=== PATIENT | female | born 1945 | race Caucasian/White ===

== ENCOUNTER 2018-04-01 09:20 | Inpatient (IN) | payer OTHER ==
[~2018-04-01 09:20] MED LIST: HIP PAIN COCKTAIL (CEFUROXIME) INJ; PROPOFOL 200 MG INJ
[2018-04-01] MEDS: TRANEXAMIC ACID 1,000 MG in NS 100 ML PRE-OP X1 IVPB (12:00)
[2018-04-01] MEDS: LACTATED RINGER'S 1,000 ML IV* (12:00)
[2018-04-01] MEDS: TRANEXAMIC ACID 1,000 MG in NS 100 ML INTRA-OP X1 IVPB (12:00)
[2018-04-01] MEDS: DEXAMETHASONE 4 MG/ML 1 ML INJ IV (12:35)
[2018-04-01] MEDS: oxyCODONE (CR) 10 MG TAB [oxyCONTIN] PO (12:36)
[2018-04-01] MEDS: ACETAMINOPHEN 1000MG/100ML IV 100 ML IVPB (12:36)
[2018-04-01] MEDS: ONDANSETRON 4 MG INJ IV ×4 (12:36→18:37)
[2018-04-01] MEDS: LANSOPRAZOLE 30 MG CAP PO (12:36)
[2018-04-01] MEDS ORDERED: POLYMYXIN/BACITRACIN 1L IRRIG (13:20)
[2018-04-01] MEDS ORDERED: ZOLPIDEM 5 MG TAB PO (13:30)
[2018-04-01] MEDS ORDERED: oxyCODONE 5 MG TAB PO (13:30)
[2018-04-01] MEDS ORDERED: MAGNESIUM HYDROXIDE 30ML CUP PO (13:30)
[2018-04-01] MEDS ORDERED: BISACODYL 10 MG SUPP PR (13:30)
[2018-04-01] MEDS ORDERED: SENNA/DOCUSATE NA (8.6MG/50MG) TAB PO (13:30)
[2018-04-01] MEDS ORDERED: KETOROLAC 15 MG INJ IV (13:30)
[2018-04-01] MEDS ORDERED: NA PHOSPHATE/BIPHOS 133 ML ENEMA PR (13:30)
[2018-04-01] MEDS ORDERED: NALOXONE (0.4 MG/ML) INJ IV (13:30)
[2018-04-01] MEDS ORDERED: DIPHENHYDRAMINE 50 MG INJ IV ×2 (13:30→14:30)
[2018-04-01] MEDS ORDERED: BUPIVACAINE 0.75%/DEXT (SPINAL) 2 ML INJ (13:44)
[2018-04-01] MEDS ORDERED: morphine SULFATE/PF (10 MG/10 ML) INJ (13:44)
[2018-04-01] MEDS ORDERED: METOCLOPRAMIDE 10 MG INJ IV (14:30)
[2018-04-01] MEDS ORDERED: HYDROmorphONE 1 MG/5 ML IV SYRINGE IV ×3 (14:30)
[2018-04-01] MEDS ORDERED: FENTAnyl 50 MCG/ML VIAL IV ×2 (14:30)
[2018-04-01] MEDS ORDERED: MEPERIDINE 25 MG INJ IV (14:30)
[2018-04-01] MEDS: BACITRACIN 50000 UNITS INJ (14:31)
[2018-04-01] MEDS: POLYMYXIN B 500000 UNIT INJ (14:31)
[2018-04-01] MEDS: POLYMYXIN/BACITRACIN 1L IRRIG IRR (14:31)
[2018-04-01] MEDS ORDERED: POLYMYXIN B 500000 UNIT INJ (15:02)
[2018-04-01] MEDS ORDERED: SUCCINYLCHOLINE CHLORIDE 100 MG/5 ML SYG IV (15:02)
[2018-04-01] MEDS ORDERED: CEFAZOLIN 1 GM INJ (15:02)
[2018-04-01] MEDS ORDERED: ROCURONIUM 50 MG INJ (15:02)
[2018-04-01] MEDS ORDERED: LIDOCAINE 100 MG SYRINGE (15:02)
[2018-04-01] MEDS ORDERED: PHENYLephrine 10 MG INJ (15:02)
[2018-04-01] MEDS ORDERED: SUGAMMADEX SODIUM 200 MG/2 ML VIAL IV (15:02)
[2018-04-01] MEDS ORDERED: hydrALAzine 20 MG INJ IV (16:30)
[2018-04-01] MEDS: SOD CHLORIDE 0.9% 1,000 ML IV ×2 (17:17→18:36)
[2018-04-01] MEDS: CEFAZOLIN 1 GM/50 ML (PMX) 50 ML IVPB ×2 (17:22→21:25)
[2018-04-01] MEDS: DOCUSATE SODIUM 100 MG CAP PO (17:23)
[2018-04-01] MEDS: ASPIRIN (EC) 325 MG TAB PO ×2 (17:25→21:00)
[2018-04-01] MEDS: ATORVASTATIN 10 MG TAB PO (21:23)
[2018-04-01] MEDS: GABAPENTIN 100 MG CAP PO (21:23)
[2018-04-02] MEDS: ONDANSETRON 4 MG INJ IV ×2 (01:30→05:50)
[2018-04-02] MEDS: PANTOPRAZOLE (EC) 40 MG TAB PO (05:50)
[2018-04-02] MEDS: CEFAZOLIN 1 GM/50 ML (PMX) 50 ML IVPB (05:50)
[2018-04-02 05:52] LABS: ADD MAN DIFF? NO
[2018-04-02 06:11] LABS: BASOPHILS % 0.1 % (0.0-2.0); HEMATOCRIT 38.6 % (37.0-47.0); LYMPHOCYTES # 0.6 10^3/ul (0.8-2.9); LYMPHOCYTES % 7.9 % (15.0-51.0); MEAN CORPUSCULAR HGB CONC 33.7 g/dl (32.0-37.0); MEAN CORPUSCULAR VOLUME 95.1 fl (82.0-101.0); MEAN PLATELET VOLUME 10.8 fl (7.4-10.4); MONOCYTE # 0.2 10^3/ul (0.3-0.9); MONOCYTES % 3.1 % (0.0-11.0); NEUTROPHIL # 6.9 10^3/ul (1.6-7.5); NEUTROPHILS % 88.5 % (39.0-77.0); PLATELET COUNT 129 10^3/UL (140-415); RED BLOOD COUNT 4.06 10^6/ul (4.20-5.40); RED CELL DISTRIBUTION WIDTH 13.1 % (11.5-14.5)
[2018-04-02 06:11] LABS: WHITE BLOOD COUNT 7.7 10^3/ul (4.8-10.8)
[2018-04-02] MEDS: BETHANECHOL 25 MG TAB PO (06:20)
[2018-04-02 06:21] LABS: ANION GAP 14 (8-16); BLOOD UREA NITROGEN 27 mg/dl (7-20); CALCIUM 8.6 mg/dl (8.4-10.2); CARBON DIOXIDE 27 mmol/L (21-31); CHLORIDE 107 mmol/L (97-110); CREATININE 0.71 mg/dl (0.44-1.00); GLUCOSE 150 mg/dl (70-220); POTASSIUM 4.8 mmol/L (3.5-5.1); SODIUM 143 mmol/L (135-144)
[2018-04-02] MEDS: FERROUS FUMARATE (SR) TAB PO ×2 (08:35→21:17)
[2018-04-02] MEDS: DOCUSATE SODIUM 100 MG CAP PO ×2 (08:35→21:17)
[2018-04-02] MEDS: CELECOXIB 200 MG CAP PO ×2 (08:36→21:18)
[2018-04-02] MEDS: GABAPENTIN 100 MG CAP PO ×2 (08:37→21:18)
[2018-04-02] MEDS: ASPIRIN (EC) 325 MG TAB PO ×2 (08:38→21:17)
[2018-04-02] MEDS: METOPROLOL (XL) 50 MG TAB PO (08:38)
[2018-04-02] MEDS: HYDROCHLOROTHIAZIDE 25 MG TAB PO (08:38)
[2018-04-02] MEDS: AMLODIPINE 2.5 MG TAB PO (08:39)
[2018-04-02] MEDS: oxyCODONE 5 MG TAB PO ×5 (10:25→22:01)
[2018-04-02] MEDS: SOD CHLORIDE 0.9% 1,000 ML IV (14:17)
[2018-04-02] MEDS: ATORVASTATIN 10 MG TAB PO (21:17)
[2018-04-03] MEDS: SOD CHLORIDE 0.9% 1,000 ML IV (02:47)
[2018-04-03] MEDS: oxyCODONE 5 MG TAB PO ×2 (03:27→10:01)
[2018-04-03 05:22] LABS: ADD MAN DIFF? NO
[2018-04-03 05:34] LABS: BASOPHILS % 0.1 % (0.0-2.0); EOSINOPHILS % 0.5 % (0.0-7.0); HEMATOCRIT 34.6 % (37.0-47.0); HEMOGLOBIN 11.6 g/dl (12.0-16.0); LYMPHOCYTES # 1.4 10^3/ul (0.8-2.9); LYMPHOCYTES % 17.3 % (15.0-51.0); MEAN CORPUSCULAR HEMOGLOBIN 31.7 pg (29.0-33.0); MEAN CORPUSCULAR HGB CONC 33.5 g/dl (32.0-37.0); MEAN CORPUSCULAR VOLUME 94.5 fl (82.0-101.0); MEAN PLATELET VOLUME 11.1 fl (7.4-10.4); MONOCYTE # 0.8 10^3/ul (0.3-0.9); MONOCYTES % 9.3 % (0.0-11.0); NEUTROPHIL # 5.9 10^3/ul (1.6-7.5); NEUTROPHILS % 72.6 % (39.0-77.0); PLATELET COUNT 131 10^3/UL (140-415); RED BLOOD COUNT 3.66 10^6/ul (4.20-5.40); RED CELL DISTRIBUTION WIDTH 13.2 % (11.5-14.5)
[2018-04-03 05:34] LABS: WHITE BLOOD COUNT 8.1 10^3/ul (4.8-10.8)
[2018-04-03 05:47] LABS: ANION GAP 14 (8-16); BLOOD UREA NITROGEN 33 mg/dl (7-20); CALCIUM 8.4 mg/dl (8.4-10.2); CARBON DIOXIDE 29 mmol/L (21-31); CHLORIDE 100 mmol/L (97-110); CREATININE 0.85 mg/dl (0.44-1.00); GLUCOSE 116 mg/dl (70-220); POTASSIUM 4.1 mmol/L (3.5-5.1); SODIUM 139 mmol/L (135-144)
[2018-04-03] MEDS: PANTOPRAZOLE (EC) 40 MG TAB PO ×2 (06:00→06:08)
[2018-04-03] MEDS: DOCUSATE SODIUM 100 MG CAP PO (09:55)
[2018-04-03] MEDS: CELECOXIB 200 MG CAP PO (09:55)
[2018-04-03] MEDS: FERROUS FUMARATE (SR) TAB PO (09:56)
[2018-04-03] MEDS: ASPIRIN (EC) 325 MG TAB PO (09:56)
[2018-04-03] MEDS: METOPROLOL (XL) 50 MG TAB PO (09:56)
[2018-04-03] MEDS: HYDROCHLOROTHIAZIDE 25 MG TAB PO (09:56)
[2018-04-03] MEDS: GABAPENTIN 100 MG CAP PO (09:56)
[2018-04-03] MEDS: AMLODIPINE 2.5 MG TAB PO (09:56)
== END 2018-04-03 15:30 | disposition home health service (06) | DRG 470 ==
LOC: REC 09:20 → MS1 18:20
PROC: 0SRC069 Replacement of Right Knee Joint with Oxidized Zirconium on Polyethylene Synthetic Substitute, Cemented, Open Approach (ICD-10-PCS; principal; 2018-04-01 13:30)
DX: M17.11 Unilateral primary osteoarthritis, right knee (principal); D69.6 Thrombocytopenia, unspecified; E66.9 Obesity, unspecified; Z68.35 Body mass index [BMI] 35.0-35.9, adult; E78.5 Hyperlipidemia, unspecified; I10 Essential (primary) hypertension
CPT/HCPCS: 73560; 80048; 85025; 87081; 87086; 88304; 88311; 97110; 97116; 97162; 97165; 97530

== ENCOUNTER 2018-10-14 07:52 | Inpatient (IN) | payer OTHER ==
[~2018-10-14 07:52] MED LIST changes: -HIP PAIN COCKTAIL (CEFUROXIME) INJ; +METOCLOPRAMIDE 10 MG INJ; +ONDANSETRON 4 MG INJ; -PROPOFOL 200 MG INJ
[2018-10-14] MEDS: oxyCODONE (CR) 10 MG TAB [oxyCONTIN] PO (08:35)
[2018-10-14] MEDS: LACTATED RINGER'S 1,000 ML IV* (08:35)
[2018-10-14] MEDS: LANSOPRAZOLE 30 MG CAP PO (08:35)
[2018-10-14] MEDS: ONDANSETRON 4 MG INJ IV ×2 (08:35→13:52)
[2018-10-14] MEDS: DEXAMETHASONE 4 MG/ML 1 ML INJ IV (08:36)
[2018-10-14] MEDS: ACETAMINOPHEN 1000MG/100ML IV 100 ML IVPB (08:44)
[2018-10-14] MEDS: CEFAZOLIN 1 GM/50 ML (PMX) 50 ML IVPB (09:00)
[2018-10-14] MEDS ORDERED: ACETAMINOPHEN 500 MG TAB PO (09:00)
[2018-10-14] MEDS ORDERED: FENTAnyl 50 MCG/ML VIAL (09:10)
[2018-10-14] MEDS ORDERED: MIDAZOLAM 1 MG/ML 2 ML INJ (09:11)
[2018-10-14] MEDS ORDERED: morphine SULFATE/PF (10 MG/10 ML) INJ (09:11)
[2018-10-14] MEDS ORDERED: CEFAZOLIN 1 GM INJ (09:13)
[2018-10-14] MEDS ORDERED: PROPOFOL 20 ML (09:13)
[2018-10-14] MEDS ORDERED: LIDOCAINE 2% (SDV) 5 ML INJ (09:13)
[2018-10-14] MEDS ORDERED: ROPIVACAINE 0.5 % 30 ML VIAL (09:16)
[2018-10-14] MEDS ORDERED: NALOXONE (0.4 MG/ML) INJ IV (10:00)
[2018-10-14] MEDS ORDERED: MAGNESIUM HYDROXIDE 30ML CUP PO (10:00)
[2018-10-14] MEDS ORDERED: HYDROmorphONE 1 MG/5 ML IV SYRINGE IV ×3 (10:00)
[2018-10-14] MEDS ORDERED: LABETALOL HCL 20MG INJ IV (10:00)
[2018-10-14] MEDS ORDERED: LEVALBUTEROL (NEB) 1.25 MG/0.5 ML AMP HHN (10:00)
[2018-10-14] MEDS ORDERED: BISACODYL 10 MG SUPP PR (10:00)
[2018-10-14] MEDS ORDERED: IPRATROPIUM (NEB) 0.5 MG/2.5 ML AMP HHN (10:00)
[2018-10-14] MEDS ORDERED: FENTAnyl 50 MCG/ML VIAL IV ×2 (10:00)
[2018-10-14] MEDS ORDERED: BETHANECHOL 25 MG TAB PO (10:00)
[2018-10-14] MEDS ORDERED: MEPERIDINE 25 MG INJ IV (10:00)
[2018-10-14] MEDS ORDERED: oxyCODONE 5 MG TAB PO ×2 (10:00)
[2018-10-14] MEDS ORDERED: NA PHOSPHATE/BIPHOS 133 ML ENEMA PR (10:00)
[2018-10-14] MEDS ORDERED: CEFAZOLIN 2 GM/50 ML (PMX) 50 ML IVPB (10:00)
[2018-10-14] MEDS ORDERED: hydrALAzine 20 MG INJ IV (10:00)
[2018-10-14] MEDS ORDERED: NACL 0.9% 3 ML SYG IV (10:00)
[2018-10-14] MEDS ORDERED: SENNA/DOCUSATE NA (8.6MG/50MG) TAB PO (10:00)
[2018-10-14] MEDS ORDERED: DIPHENHYDRAMINE 50 MG INJ IV ×2 (10:00)
[2018-10-14] MEDS ORDERED: BUPIVACAINE 0.75%/DEXT (SPINAL) 2 ML INJ (10:15)
[2018-10-14] MEDS: TRANEXAMIC ACID 1,000 MG in NS 100 ML PRE-OP X1 IVPB (10:40)
[2018-10-14] MEDS: TRANEXAMIC ACID 1,000 MG in NS 100 ML INTRA-OP X1 IVPB (10:40)
[2018-10-14] MEDS: BACITRACIN 50000 UNITS INJ (11:05)
[2018-10-14] MEDS: POLYMYXIN B 500000 UNIT INJ (11:06)
[2018-10-14] MEDS: HIP PAIN COCKTAIL (CEFUROXIME) INJ (11:07)
[2018-10-14] MEDS: GABAPENTIN 100 MG CAP PO ×2 (13:00→21:35)
[2018-10-14] MEDS: ASPIRIN 81 MG TAB PO (13:04)
[2018-10-14] MEDS: DOCUSATE SODIUM 100 MG CAP PO (13:05)
[2018-10-14] MEDS ORDERED: METOCLOPRAMIDE 10 MG INJ (13:45)
[2018-10-14] MEDS: SOD CHLORIDE 0.9% 1,000 ML IV ×2 (14:52→21:28)
[2018-10-14] MEDS: CEFAZOLIN 2 GM/50 ML (PMX) 50 ML IVPB (17:38)
[2018-10-14] MEDS: ATORVASTATIN 10 MG TAB PO (21:29)
[2018-10-15] MEDS: CEFAZOLIN 2 GM/50 ML (PMX) 50 ML IVPB ×2 (02:13→10:28)
[2018-10-15 06:08] LABS: ADD MAN DIFF? NO
[2018-10-15 06:14] LABS: WHITE BLOOD COUNT 9.3 10^3/ul (4.8-10.8)
[2018-10-15 06:14] LABS: HEMOGLOBIN 11.8 g/dl (12.0-16.0); LYMPHOCYTES # 0.8 10^3/ul (0.8-2.9); LYMPHOCYTES % 8.3 % (15.0-51.0); MEAN CORPUSCULAR HEMOGLOBIN 31.3 pg (29.0-33.0); MEAN CORPUSCULAR HGB CONC 33.7 g/dl (32.0-37.0); MEAN CORPUSCULAR VOLUME 92.8 fl (82.0-101.0); MONOCYTE # 0.5 10^3/ul (0.3-0.9); MONOCYTES % 5.6 % (0.0-11.0); NEUTROPHILS % 85.8 % (39.0-77.0); PLATELET COUNT 134 10^3/UL (140-415); RED BLOOD COUNT 3.77 10^6/ul (4.20-5.40); RED CELL DISTRIBUTION WIDTH 13.7 % (11.5-14.5)
[2018-10-15 06:34] LABS: ANION GAP 14 (5-13); BLOOD UREA NITROGEN 30 mg/dl (7-20); CALCIUM 8.9 mg/dl (8.4-10.2); CARBON DIOXIDE 25 mmol/L (21-31); CHLORIDE 101 mmol/L (97-110); CREATININE 0.86 mg/dl (0.44-1.00); GLUCOSE 130 mg/dl (70-220); POTASSIUM 4.6 mmol/L (3.5-5.1); SODIUM 140 mmol/L (135-144)
[2018-10-15] MEDS: DOCUSATE SODIUM 100 MG CAP PO ×2 (08:40→21:15)
[2018-10-15] MEDS: METOPROLOL (XL) 100 MG TAB PO (08:40)
[2018-10-15] MEDS: HYDROCHLOROTHIAZIDE 25 MG TAB PO (08:41)
[2018-10-15] MEDS: AMLODIPINE 2.5 MG TAB PO (08:41)
[2018-10-15] MEDS: GABAPENTIN 100 MG CAP PO ×3 (08:41→21:15)
[2018-10-15] MEDS: ASPIRIN (EC) 81 MG TAB PO (08:41)
[2018-10-15] MEDS ORDERED: ASPIRIN (EC) 81 MG TAB PO (09:00)
[2018-10-15] MEDS ORDERED: ONDANSETRON 4 MG INJ IV (10:00)
[2018-10-15] MEDS: CELECOXIB 100 MG CAP PO ×2 (10:27→21:21)
[2018-10-15] MEDS: APIXABAN 5 MG TABLET PO ×2 (10:27→21:15)
[2018-10-15] MEDS: SOD CHLORIDE 0.9% 1,000 ML IV ×2 (10:28→23:27)
[2018-10-15] MEDS: ATORVASTATIN 10 MG TAB PO (21:14)
[2018-10-16] MEDS: PANTOPRAZOLE (EC) 40 MG TAB PO (05:44)
[2018-10-16] MEDS: oxyCODONE 5 MG TAB PO (05:47)
[2018-10-16 06:47] LABS: ADD MAN DIFF? NO
[2018-10-16 06:57] LABS: BASOPHILS % 0.1 % (0.0-2.0); EOSINOPHILS # 0.1 10^3/ul (0.0-0.5); EOSINOPHILS % 0.7 % (0.0-7.0); HEMATOCRIT 33.7 % (37.0-47.0); HEMOGLOBIN 11.2 g/dl (12.0-16.0); LYMPHOCYTES # 1.9 10^3/ul (0.8-2.9); LYMPHOCYTES % 26.2 % (15.0-51.0); MEAN CORPUSCULAR HGB CONC 33.2 g/dl (32.0-37.0); MEAN CORPUSCULAR VOLUME 93.4 fl (82.0-101.0); MEAN PLATELET VOLUME 10.9 fl (7.4-10.4); MONOCYTE # 0.7 10^3/ul (0.3-0.9); MONOCYTES % 9.4 % (0.0-11.0); NEUTROPHIL # 4.5 10^3/ul (1.6-7.5); NEUTROPHILS % 63.3 % (39.0-77.0); PLATELET COUNT 124 10^3/UL (140-415); RED BLOOD COUNT 3.61 10^6/ul (4.20-5.40); RED CELL DISTRIBUTION WIDTH 13.5 % (11.5-14.5)
[2018-10-16 06:57] LABS: WHITE BLOOD COUNT 7.1 10^3/ul (4.8-10.8)
[2018-10-16 07:23] LABS: ANION GAP 8 (5-13); BLOOD UREA NITROGEN 28 mg/dl (7-20); CARBON DIOXIDE 28 mmol/L (21-31); CHLORIDE 102 mmol/L (97-110); CREATININE 0.72 mg/dl (0.44-1.00); GLUCOSE 101 mg/dl (70-220); POTASSIUM 4.2 mmol/L (3.5-5.1); SODIUM 138 mmol/L (135-144)
[2018-10-16] MEDS: DOCUSATE SODIUM 100 MG CAP PO (08:14)
[2018-10-16] MEDS: GABAPENTIN 100 MG CAP PO ×2 (08:14→13:47)
[2018-10-16] MEDS: CELECOXIB 100 MG CAP PO (08:14)
[2018-10-16] MEDS: METOPROLOL (XL) 100 MG TAB PO (08:15)
[2018-10-16] MEDS: AMLODIPINE 2.5 MG TAB PO (08:15)
[2018-10-16] MEDS: APIXABAN 5 MG TABLET PO (08:15)
[2018-10-16] MEDS: HYDROCHLOROTHIAZIDE 25 MG TAB PO (08:15)
[2018-10-16] MEDS: SOD CHLORIDE 0.9% 1,000 ML IV (11:57)
== END 2018-10-16 16:22 | disposition home health service (06) | DRG 470 ==
LOC: REC 07:52 → MS1 13:54 → TEL 18:18
PROVIDERS: Orthopaedic Surgery Adult Reconstructive Orthopaedic Surgery
PROC: 0SRD069 Replacement of Left Knee Joint with Oxidized Zirconium on Polyethylene Synthetic Substitute, Cemented, Open Approach (ICD-10-PCS; principal; 2018-10-14 10:12)
DX: M17.12 Unilateral primary osteoarthritis, left knee (principal); I48.0 Paroxysmal atrial fibrillation; I10 Essential (primary) hypertension; E78.5 Hyperlipidemia, unspecified; K21.9 Gastro-esophageal reflux disease without esophagitis; E80.4 Gilbert syndrome; D69.6 Thrombocytopenia, unspecified; E66.9 Obesity, unspecified; Z68.36 Body mass index [BMI] 36.0-36.9, adult; Z79.01 Long term (current) use of anticoagulants
CPT/HCPCS: 73560; 80048; 84443; 85025; 87081; 88304; 88311; 93005; 93306; 97110; 97116; 97161; 97165; 97530